=== PATIENT | male | born 1965 | race Caucasian/White ===

== ENCOUNTER 2017-09-12 17:55 | Emergency (ER) | payer SELFPAY ==
[2017-09-12 17:55] VITALS: BMI 32.3
[2017-09-12 18:03] VITALS: RESP 20
[2017-09-12] MEDS ORDERED: Tetanus/Diphtheria Toxoids 0.5 ml Syringe IM ONE ×2 (19:31→20:36)
[2017-09-12] MEDS ORDERED: Lidocaine 1% Inj (20ml) ONE (19:52)
--- NOTE | 2017-09-12 20:42 | C.PDOC ---
History Of Present Illness 52 year old male presents to the ER with a complaint of a laceration to the inside of his right inner cheek. Patient was changing a tire when he pulled the lug wrench and hit his right cheek. Denies LOC. Time Seen by Provider: 09/12/17 19:20 Chief Complaint (Nursing): Abnormal Skin Integrity History Per: Patient History/Exam Limitations: no limitations Onset/Duration Of Symptoms: Hrs Current Symptoms Are (Timing): Still Present Location Of Injury: Right: Head (Cheek) Quality Of Symptoms: Other (Laceration) Past Medical History Reviewed: Historical Data, Nursing Documentation, Vital Signs Vital Signs: Last Vital Signs Temp 98.3 F 09/12/17 20:51 Pulse 71 09/12/17 20:51 Resp 20 09/12/17 20:51 BP 110/71 09/12/17 20:51 Pulse Ox 97 09/12/17 20:51 - Medical History PMH: CAD, Diabetes, Diverticulitis, HTN Surgical History: No Surg Hx - [facility] Procedures DILATION OF 1 COR ART WITH INTRALUM DEV, PERC APPROACH (11/12/16) FLUOROSCOPY OF LEFT HEART USING LOW OSMOLAR CONTRAST (11/12/16) FLUOROSCOPY OF MULT COR ART USING L OSM CONTRAST (11/12/16) MEASURE OF CARDIAC SAMPL & PRESSURE, L HEART, PERC APPROACH (11/12/16) Family History: States: Unknown Family Hx - Social History Hx Tobacco Use: No Hx Alcohol Use: No Hx Substance Use: No - Immunization History Hx Tetanus Toxoid Vaccination: No Hx Influenza Vaccination: No Hx Pneumococcal Vaccination: No Review Of Systems ENT: Positive for: Mouth Pain Skin: Positive for: Other (Laceration) Neurological: Negative for: Other (LOC) Physical Exam - Physical Exam Appears: Non-toxic, No Acute Distress Skin: Normal Color, Warm, Dry Head: Normacephalic, Swelling (Minimal to right cheek towards lip) Oral Mucosa: Moist, No Trismus, Other (2cm laceration to right inner cheek, not through and through. Able to fully open and close mouth. No mandibular tenderness) Tongue: Normal Appearing Lips: Normal Appearing Teeth: Normal Dentition Neck: Normal, Supple Neurological/Psych: Oriented x3, Normal Speech, Normal Cognition ED Course And Treatment O2 Sat by Pulse Oximetry: 98 (Room air) Pulse Ox Interpretation: Normal Progress Note: Tetanus administered. Patient tolerated laceration repair well, instructed on proper wound care and instructed to follow up with PMD. Laceration - Laceration Repair Right inner cheek Wound Length (In cm): 2cm Description Of Wound: Linear Wound Cleansed With: Sterile Saline Anesthesia: Lidocaine 1%, With Epi Wound Examination: Irrigated With Saline Wound Closure: Suture (x5) Suture Technique And Material Used: Vicryl (5-0) Disposition - Disposition Disposition: HOME/ ROUTINE Disposition Time: 07:52 Condition: STABLE Additional Instructions: Please follow up with PMD for wound check Tylenol or motrin PO as needed Return to ER if worse Prescriptions: Amoxicillin/Clavulanate [Augmentin 500 MG-125 MG] 1 tab PO TID #21 tab Instructions: Care For Your Absorbable Stitches (ED) Forms: [employer] [place] (Macedonian) - Clinical Impression Clinical Impression: Laceration of oral cavity - Scribe Statement The provider has reviewed the documentation as recorded by the Scribjackson Gallo All medical record entries made by the Scribe were at my direction and personally dictated by me. I have reviewed the chart and agree that the record accurately reflects my personal performance of the history, physical exam, medical decision making, and the department course for this patient. I have also personally directed, reviewed, and agree with the discharge instructions and disposition.
[2017-09-12 20:52] VITALS: BP 110/71; PULSE 71; TEMP 98.3
[2017-09-13 03:44] VITALS: O2SAT 98
== END 2017-09-12 20:55 | disposition home or self-care (01) ==
LOC: C.ER 17:55
DX: S01.512A Laceration without foreign body of oral cavity, initial encounter (principal); W22.8XXA Striking against or struck by other objects, initial encounter; Y93.89 Activity, other specified; Y92.89 Other specified places as the place of occurrence of the external cause; Z23 Encounter for immunization

== ENCOUNTER 2017-09-14 18:01 | Emergency (ER) | payer SELFPAY ==
[2017-09-14 18:01] VITALS: BMI 32.3
[2017-09-14 18:32] VITALS: BP 120/78; PULSE 75; RESP 18; TEMP 99.6; O2SAT 98
--- NOTE | 2017-09-14 19:37 | C.PDOC ---
History Of Present Illness 52 year old male presents to the ED for a wound check. Patient was evaluated in ED on 09/12 and had absorbable sutures applied to his right inner cheek. Patient states pain is improving and he is taking antibiotics as prescribed. Denies redness, swelling or discharge from the area. Time Seen by Provider: 09/14/17 19:18 Chief Complaint (Nursing): Abnormal Skin Integrity History Per: Patient History/Exam Limitations: no limitations Onset/Duration Of Symptoms: Hrs Current Symptoms Are (Timing): Better Quality Of Symptoms: denies: Painful, Itching, Swollen, Draining Additional History Per: Patient Past Medical History Reviewed: Historical Data, Nursing Documentation, Vital Signs Vital Signs: Last Vital Signs Temp 99.6 F 09/14/17 18:28 Pulse 75 09/14/17 18:28 Resp 18 09/14/17 18:28 BP 120/78 09/14/17 18:28 Pulse Ox 98 09/14/17 19:58 - Medical History PMH: CAD, Diabetes, Diverticulitis, HTN Denies: Chronic Kidney Disease Surgical History: No Surg Hx - [facility] Procedures DILATION OF 1 COR ART WITH INTRALUM DEV, PERC APPROACH (11/12/16) FLUOROSCOPY OF LEFT HEART USING LOW OSMOLAR CONTRAST (11/12/16) FLUOROSCOPY OF MULT COR ART USING L OSM CONTRAST (11/12/16) MEASURE OF CARDIAC SAMPL & PRESSURE, L HEART, PERC APPROACH (11/12/16) Family History: States: Unknown Family Hx - Social History Hx Tobacco Use: No Hx Alcohol Use: No Hx Substance Use: No - Immunization History Hx Tetanus Toxoid Vaccination: No Hx Influenza Vaccination: Yes Hx Pneumococcal Vaccination: No Review Of Systems Skin: Positive for: Other (wound check) Physical Exam - Physical Exam Appears: Non-toxic, No Acute Distress Skin: Warm, Dry Head: Normacephalic Eye(s): bilateral: Normal Inspection, EOMI Oral Mucosa: Moist, Other (well-intact absorbable sutures to right inner cheek with mild ecchymosis. no discharge, surrounding erythema, or signs of infection ) Teeth: No Tender To Palpation Chest: Symmetrical Respiratory: No Accessory Muscle Use Neurological/Psych: Oriented x3, Normal Speech, Normal Cognition ED Course And Treatment O2 Sat by Pulse Oximetry: 98 (on RA) Pulse Ox Interpretation: Normal Progress Note: Discussed wound care and instructed folllow up with PM Din 1-2 days. Disposition - Disposition Disposition: HOME/ ROUTINE Disposition Time: 19:39 Condition: STABLE Instructions: Acute Wound Care (ED) Forms: [employer] (Kinyarwanda) Print Language: CHINESE - Clinical Impression Clinical Impression: Visit for wound check - PA / MASTER TECHNICIAN / Resident Statement MD/DO has reviewed & agrees with the documentation as recorded. - Scribe Statement The provider has reviewed the documentation as recorded by the Scribe (Matilde Chan) All medical record entries made by the Scribe were at my direction and personally dictated by me. I have reviewed the chart and agree that the record accurately reflects my personal performance of the history, physical exam, medical decision making, and the department course for this patient. I have also personally directed, reviewed, and agree with the discharge instructions and disposition.
== END 2017-09-14 19:41 | disposition home or self-care (01) ==
LOC: C.ER 18:01
DX: Z51.89 Encounter for other specified aftercare (principal); E11.9 Type 2 diabetes mellitus without complications; I10 Essential (primary) hypertension; I25.10 Atherosclerotic heart disease of native coronary artery without angina pectoris

== ENCOUNTER 2018-08-28 18:24 | Emergency (ER) | payer OTHER ==
[2018-08-28 18:35] VITALS: BMI 31.0
--- NOTE | 2018-08-28 20:16 | C.PDOC ---
History Of Present Illness 53 year old male with a history of cardiac disease and AL presents to the ED for evaluation of a nose bleed for the last new days. Patient reports he recently turned the heater on in his home which he believes resulted in the left nostril nose bleed that is hard to stop when bleeding begins. Admits to taking Aspirin, Plavix, and Brilinta. Denies other evidence of bleeding, bleeding while brushing teeth, fever, trauma, and any other associated symptoms. Time Seen by Provider: 08/28/18 19:37 Chief Complaint (Nursing): ENT Problem History Per: Patient History/Exam Limitations: None Onset/Duration Of Symptoms: Days Current Symptoms Are (Timing): Still Present Past Medical History Reviewed: Historical Data, Nursing Documentation, Vital Signs Vital Signs: Last Vital Signs Temp 98.1 F 08/28/18 18:54 Pulse 71 08/28/18 18:54 Resp 20 08/28/18 18:54 BP 124/76 08/28/18 18:54 Pulse Ox 98 08/28/18 18:54 - Medical History PMH: CAD, Diabetes, Diverticulitis, HTN Denies: Chronic Kidney Disease - [facility] Procedures DILATION OF 1 COR ART WITH INTRALUM DEV, PERC APPROACH (11/12/16) FLUOROSCOPY OF LEFT HEART USING LOW OSMOLAR CONTRAST (11/12/16) FLUOROSCOPY OF MULT COR ART USING L OSM CONTRAST (11/12/16) MEASURE OF CARDIAC SAMPL & PRESSURE, L HEART, PERC APPROACH (11/12/16) Family History: States: Unknown Family Hx - Social History Hx Tobacco Use: No Hx Alcohol Use: No Hx Substance Use: No - Immunization History Hx Tetanus Toxoid Vaccination: No Hx Influenza Vaccination: Yes Hx Pneumococcal Vaccination: No Review Of Systems Constitutional: Negative for: Fever, Other (trauma) ENT: Positive for: Other (left nostril nose bleed. (-) bleeding while brushing teeth.) Physical Exam - Physical Exam Appears: Well, Non-toxic, No Acute Distress Skin: Normal Color, Warm, Dry Head: Atraumatic, Normacephalic Eye(s): bilateral: Normal Inspection Nose: No Discharge, No Epistaxis (no active bleeding in the nose.), Other (dried blood to the anterior septum of the left nostril. ) Oral Mucosa: Moist Neck: Normal ROM, Supple Chest: Symmetrical, No Deformity Cardiovascular: Rhythm Regular, No Murmur Respiratory: Normal Breath Sounds, No Rales, No Rhonchi, No Wheezing Neurological/Psych: Oriented x3, Normal Speech ED Course And Treatment O2 Sat by Pulse Oximetry: 98 (RA) Pulse Ox Interpretation: Normal Medical Decision Making Medical Decision Making: Progress/Update: Patient stable for discharge home. Disposition - Disposition Disposition: HOME/ ROUTINE Disposition Time: 20:15 Condition: IMPROVED Instructions: Nosebleeds (DC) Forms: [employer] (Persian) Print Language: ALBANIAN - Clinical Impression Clinical Impression: Epistaxis not due to trauma - Scribe Statement The provider has reviewed the documentation as recorded by the Scribe (Nayeli Miranda) Provider Attestation: All medical record entries made by the Scribe were at my direction and personally dictated by me. I have reviewed the chart and agree that the record accurately reflects my personal performance of the history, physical exam, medical decision making, and the department course for this patient. I have also personally directed, reviewed, and agree with the discharge instructions and disposition.
[2018-08-28 21:00] VITALS: BP 118/67; PULSE 62; RESP 18; TEMP 98.4; O2SAT 97
== END 2018-08-28 20:40 | disposition home or self-care (01) ==
LOC: C.ER 18:24
DX: R04.0 Epistaxis (principal)